=== PATIENT | female | born 1975 | race Caucasian/White ===

== ENCOUNTER 2022-10-08 01:12 | Day surgery (SDC) | payer BC, SELFPAY ==
[2022-09-27 12:40] VITALS: BMI 41.3
[2022-10-08 07:42] VITALS: BP 136/98; PULSE 80; RESP 20; O2SAT 99; BMI 41.8
--- NOTE | 2022-10-08 07:47 | WPDANESEPPF ---
Anes - Initial Pre Proc Eval Procedure: Operation Date: 10/08/22 08:30 Proposed Procedures p Screening Colonoscopy - Ney Jenkins MD Date/Time: 10/08/22 07:47 Surgeon: Ney Jenkins MD Pre Op Diagnosis: neoplasm screening Patient Data Age: 47 Gender: F Height: 1.63 m Weight: 110.5 kg Last Vital Signs Pulse 80 10/08/22 07:42 Resp 20 10/08/22 07:42 BP 136/98 H 10/08/22 07:42 Pulse Ox 99 10/08/22 07:42 O2 Del Method Room Air 10/08/22 07:42 Allergies Allergy/AdvReac Type Severity Reaction Status Date / Time ciprofloxacin Allergy Mild NAUSEA, Verified 10/08/22 07:38 HEADACHE, BODYACHES erythromycin base Allergy Mild Rash Verified 10/08/22 07:38 Home Medications Medication Instructions Recorded Confirmed Type semaglutide (weight loss) 0.25 0.25 mg (0.5 mL) subcut WEEKLY #2 10/04/22 10/08/22 Rx mg/0.5 mL subcutaneous pen mL injector (Paolo) Patient hx anesthesia problems: none Family hx anesthesia problems: none Results Review: All pre-operative results and documents have been reviewed as part of the pre-operative evaluation. [facility] Past Medical History Medical History (Updated 10/08/22 @ 07:47 by John Echols MD) Morbid obesity Osteoarthritis of right knee Surgical History Surgical History H/O: section History of appendectomy History of partial hysterectomy Family History Family History Grandparent Cerebrovascular accident Hypertension Depression Anxiety Mother Hypertension Father Alcoholism Sibling Asthma Sibling Hypertension Daughter Hodgkins lymphoma Grandparent Hypertension Grandparent Diabetes mellitus Social History Social History Smoking status: Never smoker Alcohol intake: never Substance use: never Substance use type: does not use Lack of Transportation: No Lack of Food: Never True Current Housing: I Have Housing Concerned About Future Housing: No Difficulty Paying Gas/Electric Bills: No Difficulty Paying for Meds: No Currently Unemployed: No Education: Decline to Answer Difficulty w/ Childcare or Family Care: No Living arrangements: with family Occupation/Education: occupation Additional occupation/education comments: saftey coordinator Gender identity (if verbalized by the patient): Female Spiritual care concerns: No Agree to blood products: Yes Anes - Eval Final PreProcedure Day of Procedure 10/08/22 07:47 Patient weight: morbidly obese Heart: regular rate and rhythm Lungs: clear to auscultation Airway: Mallampati scale class II Neurological: alert and oriented Last oral intake: >/= 8 hours ASA classification: III Emergent: no Anesthetic plan: proceed Anesthesia type and monitoring: general GIVS and standard monitoring Results Review: All pre-operative results and documents have been reviewed as part of the pre-operative evaluation. Informed Consent: The patient's anesthetic plan and its attendant risks and benefits were discussed with the patient/family/POA. Questions were solicited and answers provided to the satisfaction of the patient/family/POA.
[2022-10-08] MEDS: LACTATED RINGERS 1,000 ML 150 ML IV CONT (07:51)
--- NOTE | 2022-10-08 08:00 | PM.HPGS ---
History of Present Illness History of Present Illness Consent: Risks, benefits, and alternatives have been discussed and questions answered. Patient agrees to proceed with procedure. Chief complaint: neoplasm screening Narrative: Iesha Phelan is a 47 year old female Presents for screening colonoscopy. Patient's current weight appetite and bowel movements are normal. Patient denies abdominal pain. She has had no bleeding. Family history noncontributory. Review of Systems Review of Systems: Review of systems noncontributory. [facility] Past Medical History Medical History (Updated 10/08/22 @ 08:01 by Ney Jenkins MD) Morbid obesity Osteoarthritis of right knee Surgical History Surgical History H/O: section History of appendectomy History of partial hysterectomy Family History Family History Grandparent Cerebrovascular accident Hypertension Depression Anxiety Mother Hypertension Father Alcoholism Sibling Asthma Sibling Hypertension Daughter Hodgkins lymphoma Grandparent Hypertension Grandparent Diabetes mellitus Social History Social History Smoking status: Never smoker Alcohol intake: never Substance use: never Substance use type: does not use Lack of Transportation: No Lack of Food: Never True Current Housing: I Have Housing Concerned About Future Housing: No Difficulty Paying Gas/Electric Bills: No Difficulty Paying for Meds: No Currently Unemployed: No Education: Decline to Answer Difficulty w/ Childcare or Family Care: No Living arrangements: with family Occupation/Education: occupation Additional occupation/education comments: saftey coordinator Gender identity (if verbalized by the patient): Female Spiritual care concerns: No Agree to blood products: Yes Meds Home Medications and Allergies Home Medications Medication Instructions Recorded Confirmed Type No Home Medications 10/08/22 10/08/22 History Allergies Allergy/AdvReac Type Severity Reaction Status Date / Time ciprofloxacin Allergy Mild NAUSEA, Verified 10/08/22 07:38 HEADACHE, BODYACHES erythromycin base Allergy Mild Rash Verified 10/08/22 07:38 Vital Signs Vital Signs - 24 hr 10/08/22 07:42 Pulse Rate 80 Respiratory Rate 20 Blood Pressure 136/98 H Pulse Oximetry 99 Oxygen Delivery Room Air Exam Narrative: Physical exam reveals patient be alert. Vital signs stable. HEENT exam is unremarkable. Patient is anicteric. Lungs are clear to auscultation and percussion. Heart is without murmur or extra sounds. Abdomen bowel sounds are present soft nontender with no organomegaly. Digital external rectal exam is normal. Assessment and Plan Assessment and plan (1) Encounter for screening colonoscopy: Code(s): Z12.11 - Encounter for screening for malignant neoplasm of colon Status: Acute Assessment and Plan: Patient presents today for screening colonoscopy. She appears to be at average risk for colon polyps. Further recommendations may be given after endoscopy.
[2022-10-08 08:46] VITALS: BP 122/86; PULSE 80; RESP 25; O2SAT 99
[2022-10-08 08:56] VITALS: BP 124/82; PULSE 71; RESP 17; O2SAT 100
[2022-10-08 09:03] VITALS: BP 133/90; PULSE 66; RESP 18; O2SAT 100
== END 2022-10-08 09:17 | disposition home or self-care (01) ==
PROVIDERS: PCP Family Medicine; Visit Provider Internal Medicine Gastroenterology
PROC: 0DJD8ZZ Inspection of Lower Intestinal Tract, Via Natural or Artificial Opening Endoscopic (ICD-10-PCS; CPT 45378; principal; 2022-10-08 08:30)
DX: Z12.11 Encounter for screening for malignant neoplasm of colon (principal); K64.8 Other hemorrhoids; E66.01 Morbid (severe) obesity due to excess calories; Z68.41 Body mass index [BMI] 40.0-44.9, adult
CPT/HCPCS: 45378; J2704; J7120

== ENCOUNTER 2023-09-09 15:55 | Outpatient (CLI) | payer BC, SELFPAY ==
--- NOTE | ~2023-09-09 | XR_ITS ---
XR abdomen/kub 1V Ordering provider: Brittanie Schilling PA-C History: . left flank pain with microscopic hematuria for 4-5 days . Comparison: None. FINDINGS: BOWEL: Nonobstructive bowel gas pattern. ORGANOMEGALY: None. SIGNIFICANT PATHOLOGIC CALCIFICATIONS: None. OTHER: Degenerative changes of the spine. No free air is seen under the diaphragm. IMPRESSION: NO ACUTE ABDOMINAL FINDINGS. Reviewed, dictated and finalized at location A.
== END 2023-09-09 15:56 ==
PROVIDERS: PCP Student in an Organized Health Care Education/Training Program; Visit Provider Student in an Organized Health Care Education/Training Program
DX: R10.9 Unspecified abdominal pain (principal)
CPT/HCPCS: 74018